=== PATIENT | female | born 1975 | race Caucasian/White ===

== ENCOUNTER → 2018-02-10 | Outpatient (CLI) | payer BC ==
--- NOTE | 2018-02-10 09:46 | MM ---
Reason for exam: screening (asymptomatic). Baseline mammogram. History: Family history of breast cancer in mother at age 62. Took hormonal contraceptives for 2 years beginning at age 24. Physical Findings: Nurse did not find any significant physical abnormalities on exam. MG Screening Mammo w CAD Bilateral CC and MLO view(s) were taken. The breast tissue is extremely dense which could obscure a lesion on mammography. There is no discrete abnormality. These results were verbally communicated with the patient and result sheet given to the patient on 02/10/18. ASSESSMENT: Negative, BI-RAD 1 RECOMMENDATION: Routine screening mammogram of both breasts in 1 year.
== END | disposition home or self-care (01) ==
LOC: RADMAMWWP 08:08
PROVIDERS: ATTEND Family Medicine
DX: Z12.31 Encounter for screening mammogram for malignant neoplasm of breast (principal)
CPT/HCPCS: 77067

== ENCOUNTER → 2019-03-08 | Outpatient (CLI) | payer OTHER ==
--- NOTE | 2019-03-08 14:04 | MM ---
Reason for exam: screening (asymptomatic). Last mammogram was performed 1 year and 1 month ago. History: Family history of breast cancer in mother at age 62. Took hormonal contraceptives for 2 years beginning at age 24. Physical Findings: A clinical breast exam by your physician is recommended on an annual basis and results should be correlated with mammographic findings. MG Screening Mammo w CAD Bilateral CC and MLO view(s) were taken. Prior study comparison: February 10, 2018, bilateral MG screening mammo w CAD. The breast tissue is extremely dense which could obscure a lesion on mammography. No suspicious abnormality. No significant changes when compared with prior studies. ASSESSMENT: Negative, BI-RAD 1 RECOMMENDATION: Routine screening mammogram of both breasts in 1 year.
== END | disposition home or self-care (01) ==
LOC: RADMAMWWP 06:58
PROVIDERS: ATTEND Family Medicine
DX: Z12.31 Encounter for screening mammogram for malignant neoplasm of breast (principal)
CPT/HCPCS: 77067

== ENCOUNTER → 2019-03-22 | Outpatient (CLI) | payer OTHER ==
--- NOTE | 2019-03-22 08:05 | XR ---
EXAMINATION TYPE: XR cervical spine limited DATE OF EXAM: 03/22/2019 COMPARISON: NONE HISTORY: 44-year-old female paresthesia of skin TECHNIQUE: 3 views FINDINGS: Uncovertebral joint degenerative change and facet arthropathy particularly at C5-C6 and C6-C7. Modera te disc/endplate degenerative change at C5-C6 with anterior and posterior disc osteophyte complex. Al ignment is maintained. No predental space widening or prevertebral soft tissue swelling. Normal odont oid view. IMPRESSION: Focal moderate spondylotic change at C5-C6 and C6-C7. Disc osteophyte complex is suggested at C5-C6. No malalignment.
== END | disposition home or self-care (01) ==
LOC: RADXRMAIN 07:08
PROVIDERS: ATTEND Family Medicine
DX: M47.812 Spondylosis without myelopathy or radiculopathy, cervical region (principal); R20.2 Paresthesia of skin
CPT/HCPCS: 72040

== ENCOUNTER → 2020-06-07 | Outpatient (CLI) | payer OTHER | END | disposition home or self-care (01) | LOC: LABWHC1 09:50 | PROVIDERS: ATTEND Nurse Practitioner Family | DX: Z20.828 Contact with and (suspected) exposure to other viral communicable diseases (principal) | CPT/HCPCS: U0003; C9803 ==

== ENCOUNTER → 2021-02-11 | Outpatient (CLI) | payer OTHER ==
--- NOTE | 2021-02-12 10:17 | MM ---
Reason for exam: screening (asymptomatic). Last mammogram was performed 1 year and 11 months ago. History: Family history of breast cancer in mother at age 62. Took hormonal contraceptives for 2 years beginning at age 24. Physical Findings: A clinical breast exam by your physician is recommended on an annual basis and results should be correlated with mammographic findings. MG Screening Mammo w CAD Bilateral CC and MLO view(s) were taken. Prior study comparison: March 08, 2019, bilateral MG screening mammo w CAD. February 10, 2018, bilateral MG screening mammo w CAD. The breast tissue is heterogeneously dense. This may lower the sensitivity of mammography. Medial right CC asymmetric density is more defined. ASSESSMENT: Incomplete: need additional imaging evaluation, BI-RAD 0 RECOMMENDATION: Special view mammogram of the right breast. (3D) If lesion persists on supplemental views, image directed ultrasound is recommended. [facility] will attempt to contact patient to return for supplemental views and ultrasound if indicated.
== END | disposition home or self-care (01) ==
LOC: RADMAMWWP 06:58
PROVIDERS: ATTEND Family Medicine
DX: Z12.31 Encounter for screening mammogram for malignant neoplasm of breast (principal)
CPT/HCPCS: 77067

== ENCOUNTER → 2021-02-13 | Outpatient (CLI) | payer OTHER ==
--- NOTE | 2021-02-13 12:14 | MM ---
Reason for exam: additional evaluation requested from abnormal screening. Last mammogram was performed less than 1 month ago. History: Family history of breast cancer in mother at age 62. Took hormonal contraceptives for 2 years beginning at age 24. Physical Findings: Nurse Summary: 0.5cm nodule in the right breast at 9 o'clock (nurse dw). MG Work Up Mamm w CAD RT CC and MLO view(s) were taken of the right breast. Prior study comparison: February 11, 2021, bilateral MG screening mammo w CAD. March 08, 2019, bilateral MG screening mammo w CAD. The breast tissue is heterogeneously dense. This may lower the sensitivity of mammography. There is no discrete abnormality including area of concern. These results were verbally communicated with the patient and result sheet given to the patient on 02/13/21. ASSESSMENT: Incomplete: need additional imaging evaluation, BI-RAD 0 RECOMMENDATION: Ultrasound of the right breast.
--- NOTE | 2021-02-13 12:16 | USB ---
Reason for exam: additional evaluation requested from abnormal screening. History: Family history of breast cancer in mother at age 62. Took hormonal contraceptives for 2 years beginning at age 24. US Breast Workup Limited RT Technologist: Inna Perez Right limited breast ultrasound including focal area of concern, retroareolar and axilla demonstrates a 3.0 x 0.8 x 0.6cm lymph node at the axilla. These results were verbally communicated with the patient and result sheet given to the patient on 02/13/21. ASSESSMENT: Negative, BI-RAD 1 RECOMMENDATION: Return to routine screening mammogram schedule for both breasts. Manage patient on a clinical basis.
== END | disposition home or self-care (01) ==
LOC: RADMAMWWP 07:17
PROVIDERS: ATTEND Family Medicine
DX: Z80.3 Family history of malignant neoplasm of breast (principal)
CPT/HCPCS: 77065

== ENCOUNTER → 2021-03-22 | Outpatient (CLI) | payer OTHER ==
[2021-03-22 14:26] VITALS: BP 129/84; PULSE 65; RESP 16; TEMP 98.3
--- NOTE | 2021-03-22 14:44 | P.GSHP ---
History of Present Illness H&P Date: 03/22/21 Chief Complaint: lump under right arm Jami is a 46 year old white female seen in consultation for DR. Virk regarding a nodule under her right arm noted on ultrasound. She underwent a routine screening mammogram on 4520 which revealed a medial right breast asymmetric density and special views of the right breast were recommended. These were performed on 4720 there are no there was no discrete abnormality identified but an ultrasound of the right breast was recommended. This was performed on the same date and revealed a 3 x 0.8 cm lymph node in the axilla. This was felt to be negative BIRADS 1. Patient does not feel any lesions of concern herself. She is not complaining of any pain in her breast. She does not complain of any nipple discharge or skin changes. She has not had any recent trauma or infection in the breast. She's never had any surgery of the breast. COVID vaccine two days after lump found, left arm. Priscilla. Caffeine: 2 cups of coffee in the morning and 3 pops in the evening Nicotine: Stopped 3 years ago, used to smoke 1PPD for 15 years chocolate: occasional BCP: none; used for about 2 years many years ago hormones: none Family History: mother: breast and uterine cancer Hormonal history: Menarche: 19 , breast fed: no, age at first : 24 periods regular, LMP last week Surgical history: Negative. Medical history: Negative Social history: Nicotine: Stopped smoking 3 years ago used to smoke 1 pack per day for 15 years Alcohol: Negative Drugs: Occasional marijuana - Constitutional Constitutional: Denies chills, Denies fever - EENT Eyes: denies blurred vision, denies pain Ears: deny: decreased hearing, tinnitus Ears, nose, mouth and throat: Denies headache, Denies sore throat - Breasts Breasts: bilateral: as per HPI - Cardiovascular Cardiovascular: Denies chest pain, Denies shortness of breath - Respiratory Respiratory: Denies cough, Denies 7 - Gastrointestinal Gastrointestinal: Denies abdominal pain, Denies diarrhea, Denies nausea, Denies vomiting - Genitourinary (Female) Genitourinary: Denies dysuria, Denies hematuria - Menstruation Menstruation: Reports period normal - Musculoskeletal Musculoskeletal: Denies myalgias - Integumentary Integumentary: Denies pruritus, Denies rash - Neurological Comment: minor carpel tunnel Neurological: Reports numbness, Denies weakness - Psychiatric Psychiatric: Denies anxiety, Denies depression - Endocrine Endocrine: Denies fatigue, Denies weight change - Hematologic/Lymphatic Comment: none - Allergic/Immunologic Allergic/Immunologic: Reports as per HPI Past Medical History Past Medical History: No Reported History History of Any Multi-Drug Resistant Organisms: None Reported Past Surgical History: No Surgical Hx Reported Past Anesthesia/Blood Transfusion Reactions: No Reported Reaction Past Psychological History: No Psychological Hx Reported Smoking Status: Former smoker Past Alcohol Use History: Occasional Additional Past Alcohol Use History / Comment(s): Started smoking at age 18 and stopped at age 43 Past Drug Use History: Marijuana Medications and Allergies Home Medications Medication Instructions Recorded Confirmed Type No Known Home Medications 03/22/21 03/22/21 History Allergies Allergy/AdvReac Type Severity Reaction Status Date / Time codeine Allergy Swelling Unverified 03/22/21 14:21 tetracycline Allergy Swelling Unverified 03/22/21 14:21 Surgical - Exam Vital Signs Temp Pulse Resp BP Pulse Ox 98.3 F 65 16 129/84 99 03/22/21 14:21 03/22/21 14:21 03/22/21 14:21 03/22/21 14:21 03/22/21 14:21 BMI 21.9 - General well developed, well nourished, no distress - Eyes normal ocular movement - ENT normal pinna, normal nares - Neck no masses, trachea midline - Respiratory normal expansion, normal respiratory effort, clear to auscultation - Cardiovascular Rhythm: regular Heart Sounds: normal: S1, S2 - Abdomen Abdomen: soft, non tender, no guarding, no rigid, no rebound - Integumentary normal turgor - Neurologic no disoriented, no combative - Musculoskeletal normal gait - Psychiatric oriented to time, oriented to person, oriented to place, speech is normal, memory intact breast exam: BRA: 34C inspection: Bilateral grade 2 ptosis Palpation: Right breast: Multi-positional exam fibrocystic changes, no dominant masses or nodules of concern Right axilla: Shoddy right axillary adenopathy non-worrisome Left breast: Multiple positional exam fibrocystic changes, no dominant masses or nodules of concern Left axilla: Shoddy adenopathy non-worrisome Patient has shotty right groin adenopathy no left groin adenopathy No splenomegaly and no hepatomegaly No cervical adenopathy of concern Results Mammogram and ultrasound results reviewed and reviewed with Dr. Whiting weight Assessment and Plan Assessment: Impression/Plan: 1. Fibrocystic breast changes 2. Radiographic abnormality right breast appears to be benign 3. Repeat right breast mammogram and ultrasound in 6 months for surveillance with appointment here at that time 4. Patient is anything of concern she should come sooner 5. Family history of breast cancer/mother CC: Dr. Virk
== END ==
LOC: WWCWWP 13:45
PROVIDERS: ATTEND Surgery
DX: N60.11 Diffuse cystic mastopathy of right breast (principal); N60.12 Diffuse cystic mastopathy of left breast; R92.8 Other abnormal and inconclusive findings on diagnostic imaging of breast; Z80.3 Family history of malignant neoplasm of breast; Z87.891 Personal history of nicotine dependence; Z88.5 Allergy status to narcotic agent; Z88.1 Allergy status to other antibiotic agents

== ENCOUNTER → 2021-10-01 | Outpatient (CLI) | payer OTHER ==
--- NOTE | 2021-10-02 09:37 | MM ---
Reason for exam: follow-up at short interval from prior study. Last mammogram was performed 8 months ago. History: Family history of breast cancer in mother at age 62. Took hormonal contraceptives for 2 years beginning at age 24. Physical Findings: Nurse did not find any significant physical abnormalities on exam. MG 3D Diag Mammo W/Cad RT CC and MLO view(s) were taken of the right breast. Prior study comparison: February 13, 2021, right breast MG work up mamm w CAD RT. February 11, 2021, bilateral MG screening mammo w CAD. The breast tissue is heterogeneously dense. This may lower the sensitivity of mammography. There is no discrete abnormality including area of concern. These results were verbally communicated with the patient and result sheet given to the patient on 10/01/21. ASSESSMENT: Incomplete: need additional imaging evaluation, BI-RAD 0 RECOMMENDATION: Ultrasound of the right breast. Manage patient on a clinical basis.
--- NOTE | 2021-10-02 09:38 | USB ---
Reason for exam: additional evaluation requested from abnormal screening. History: Family history of breast cancer in mother at age 62. Took hormonal contraceptives for 2 years beginning at age 24. US Breast Axilla RT Right breast axilla ultrasound demonstrates no cystic or solid lesion seen. These results were verbally communicated with the patient and result sheet given to the patient on 10/01/21. ASSESSMENT: Negative, BI-RAD 1 RECOMMENDATION: Return to routine screening mammogram schedule for both breasts. Back on schedule. Manage patient on a clinical basis.
== END | disposition home or self-care (01) ==
LOC: RADMAMWWP 13:37
PROVIDERS: ATTEND Surgery
DX: R92.8 Other abnormal and inconclusive findings on diagnostic imaging of breast (principal)
CPT/HCPCS: 77061; 77065

== ENCOUNTER → 2021-11-21 | Outpatient (CLI) | payer OTHER ==
[2021-11-21 08:51] VITALS: BP 150/79; PULSE 93; RESP 18; TEMP 98.2
--- NOTE | 2021-11-21 09:18 | P.PN ---
Subjective Progress Note Date: 11/21/21 Principal diagnosis: fibrocystic breast changes Jami is a 46 year old white female seen in consultation for DR. Virk on 03-22-21 regarding a nodule under her right arm noted on ultrasound. She underwent a routine screening mammogram on 4520 which revealed a medial right breast asymmetric density and special views of the right breast were recommended. These were performed on 4720 there are no there was no discrete abnormality identified but an ultrasound of the right breast was recommended. This was performed on the same date and revealed a 3 x 0.8 cm lymph node in the axilla. This was felt to be negative BIRADS 1. She had a right breast mammogram on 10-01-21 followed by an ultrasund on 10-01-21 which was negative BIRAD 1. Patient does not feel any lesions of concern herself. She is not complaining of any pain in her breast. She does not complain of any nipple discharge or skin changes. She has not had any recent trauma or infection in the breast. She's never had any surgery of the breast. COVID vaccine two days after lump found, left arm. [employer]; she had the booster in her right arm days ago. She did not have any reaction to this and had not felt any nodularity in her axilla. Caffeine: 2 cups of coffee in the morning and 2 pops in the evening Nicotine: Stopped 4 years ago, used to smoke 1PPD for 15 years chocolate: occasional BCP: none; used for about 2 years many years ago hormones: none Family History: mother: breast and uterine cancer Hormonal history: Menarche: 19 , breast fed: no, age at first : 24 periods regular, LMP last week Surgical history: Negative. Medical history: Negative Social history: Nicotine: Stopped smoking 3 years ago used to smoke 1 pack per day for 15 years Alcohol: Negative Drugs: Occasional marijuana - Constitutional Constitutional: Denies chills, Denies fever - EENT Eyes: denies blurred vision, denies pain Ears: deny: decreased hearing, tinnitus Ears, nose, mouth and throat: Denies headache, Denies sore throat - Breasts Breasts: bilateral: as per HPI - Cardiovascular Cardiovascular: Denies chest pain, Denies shortness of breath - Respiratory Respiratory: Denies cough - Gastrointestinal Gastrointestinal: Denies abdominal pain, Denies diarrhea, Denies nausea, Denies vomiting - Genitourinary (Female) Genitourinary: Denies dysuria, Denies hematuria - Menstruation Menstruation: Reports period normal - Musculoskeletal Musculoskeletal: Denies myalgias - Integumentary Integumentary: Denies pruritus, Denies rash - Neurological Comment: minor carpel tunnel Neurological: Reports numbness, Denies weakness - Psychiatric Psychiatric: Denies anxiety, Denies depression - Endocrine Endocrine: Denies fatigue, Denies weight change - Hematologic/Lymphatic Comment: none - Allergic/Immunologic Allergic/Immunologic: Reports as per HPI Objective - Vital Signs Vital signs: Vital Signs Temp 98.2 F 11/21/21 08:48 Pulse 93 11/21/21 08:48 Resp 18 11/21/21 08:48 BP 150/79 11/21/21 08:48 Pulse Ox 96 11/21/21 08:48 Intake & Output 11/20/21 11/21/21 11/21/21 18:59 06:59 18:59 Weight 63.503 kg - Constitutional General appearance: Present: cooperative - EENT Eyes: Present: EOMI ENT: Present: hearing grossly normal - Neck Neck: Present: normal ROM - Respiratory Respiratory: bilateral: CTA - Cardiovascular Heart sounds: normal: S1, S2 - Gastrointestinal General gastrointestinal: Present: soft - Integumentary Integumentary: Present: normal turgor - Musculoskeletal Musculoskeletal: Present: gait normal - Psychiatric Psychiatric: Present: A&O x's 3 - Additional findings Additional findings: Breast Exam: BRA: 36C Inspection: Bilateral grade 2 ptosis Palpation: Right breast: Multiple positional exam fibrocystic changes no dominant masses or nodules of concern Right axilla: Persistent shoddy adenopathy/patient had covert vaccine 2 days ago in the right arm Left breast: Multiple positional exam fibrocystic changes no dominant masses or nodules of concern Left axilla: Shoddy adenopathy Liver not enlarged Spleen not enlarged No cervical adenopathy of concern Shoddy bilateral groin adenopathy non-worrisome Assessment and Plan Assessment: Impression: 1. Bilateral fibrocystic breast changes 2. Bilateral shotty axillary adenopathy greater on the right than the left has had ultrasound most recently of this area in September patient show any specific lesions of concern Plan: Bilateral mammogram in February back on schedule Right axillary ultrasound Follow up sooner if patient notes anything of concern CC: Dr. Virk
== END | disposition home or self-care (01) ==
LOC: WWCWWP 08:36
PROVIDERS: ATTEND Surgery
DX: Z53.9 Procedure and treatment not carried out, unspecified reason (principal)

== ENCOUNTER → 2023-12-10 | Outpatient (CLI) | payer OTHER ==
--- NOTE | 2023-12-10 21:07 | MM ---
Reason for Exam: Screening (asymptomatic). Last mammogram was performed 1 year(s) and 10 month(s) ago. Patient History: Menarche at age 19. First Full-Term at age 24. Hormonal Contraceptives for 2 years from age 24 until age 26. Mother had breast cancer, age 62. Last menstrual period: 12/07/2023 Risk Values: Brianda 5 year model risk: 1.5%. NCI Lifetime model risk: 15.9%. Prior Study Comparison: 02/13/2021 Right Diagnostic Mammogram, [facility]. 10/01/2021 Right Diagnostic Mammogram, [facility]. 02/21/2022 Bilateral Diagnostic Mammogram, [facility]. Tissue Density: The breast tissue is heterogeneously dense. This may lower the sensitivity of mammography. Findings: Analyzed By CAD. There is no suspicious group of microcalcifications or new suspicious mass in either breast. Overall Assessment: Negative, BI-RAD 1 Management: Screening Mammogram of both breasts in 1 year. . Patient should continue monthly self-breast exams. A clinical breast exam by your physician is recommended on an annual basis. This exam should not preclude additional follow-up of suspicious palpable abnormalities. Note on Brianda scores and lifetime risk: 1. A Brianda score greater than 3% is considered moderate risk. If this is the case, consider specialist referral to assess eligibility for a risk reducing agent. 2. If overall lifetime risk for the development of breast cancer is 20% or higher, the patient may qualify for future screening with alternating mammogram and breast MRI. Electronically signed and approved by: Lindsay Johnson M.D. Radiologist
== END | disposition home or self-care (01) ==
LOC: RADMAMWWP 10:42
PROVIDERS: ATTEND Family Medicine
DX: Z12.31 Encounter for screening mammogram for malignant neoplasm of breast (principal); Z80.3 Family history of malignant neoplasm of breast
CPT/HCPCS: 77063; 77067

== ENCOUNTER → 2023-12-25 | Day surgery (SDC) | payer OTHER ==
[2023-12-23 14:18] VITALS: BMI 21.1
[~2023-12-25] MED LIST: LIDOCAINE 1% (10MG/ML) FOR IV START INTRADERMA PRN; ONDANSETRON 4 MG/2 ML VIAL IVP PRN; PROPOFOL 10 MG/ML 20 ML VIAL IV ONE
[2023-12-25] MEDS: LACTATED RINGERS 1,000 ML IV SCH (13:31)
[2023-12-25 14:04] VITALS: RESP 16; TEMP 98.9
[2023-12-25] MEDS: MIDAZOLAM 2 MG/2 ML VIAL IVP ONE (14:52)
--- NOTE | 2023-12-25 15:10 | P.PCN ---
Date of Procedure: 12/25/23 Procedure(s) Performed: BRIEF HISTORY: Patient is a 48-year-old pleasant white female scheduled for an elective colonoscopy as a part of screening for colon cancer/positive cologuard. PROCEDURE PERFORMED: Colonoscopy. PREOPERATIVE DIAGNOSIS: Screening for colon cancer/positive cologuard. IV sedation per Anesthesia. PROCEDURE: After informed consent was obtained, the patient, was brought into the endoscopy unit. IV sedation was administered by Anesthesia under continuous monitoring. Digital rectal examination was normal. Initially the Olympus CF-160 flexible video colonoscope was then inserted in the rectum, gradually advanced into the cecum without any difficulty. Careful examination was performed as the scope was gradually being withdrawn. Ileocecal valve and the appendiceal orifice were visualized and appeared normal. Prep was excellent. Mucosa of the cecum, ascending colon, transverse colon, descending colon, sigmoid colon, and rectum appeared normal. At her sigmoid diverticulosis. Retroflexion was performed in the rectum and no lesions were seen. The patient tolerated the procedure well. IMPRESSION: Normal-appearing colon from rectum to cecum no evidence of colorectal neoplasia Scattered sigmoid diverticulosis. RECOMMENDATIONS: Findings of this examination were discussed with the patient as well as a family. She was advised to have a repeat screening colonoscopy in 10 years..
[2023-12-25 15:37] VITALS: BP 124/60; PULSE 79
== END ==
LOC: ORWHC2ENDO 12:51
PROVIDERS: ATTEND Internal Medicine Gastroenterology
DX: K57.30 Diverticulosis of large intestine without perforation or abscess without bleeding (principal); F12.90 Cannabis use, unspecified, uncomplicated; Z88.5 Allergy status to narcotic agent; Z79.899 Other long term (current) drug therapy
CPT/HCPCS: 45378; 81025